=== PATIENT | female | born 1980 | race Caucasian/White ===

== ENCOUNTER → 2017-08-03 | Outpatient (CLI) | payer OTHER ==
[2017-08-03 18:16] LABS: FREE T4 1.04 NG/DL (0.76-1.46)
[2017-08-03 18:31] LABS: ESTRADIOL 31.2 PG/ML; FOLLICLE STIMULATING HORMONE 7.6 mIU/mL; LUTEINIZING HORMONE 2.3 mIU/mL
[2017-08-03 18:31] LABS: PROGESTERONE 0.3 NG/ML
== END ==
LOC: M LRY 13:04
DX: F34.1 Dysthymic disorder (principal); N92.6 Irregular menstruation, unspecified